=== PATIENT | female | born 1960 ===

== ENCOUNTER 2018-08-21 08:31 | Emergency (ER) | payer BC ==
[2018-08-21] MEDS ORDERED: PEPCID IV ONE (09:51)
[2018-08-21] MEDS ORDERED: BENTYL IM ONE (09:51)
[2018-08-21] MEDS ORDERED: NACL 0.9% 1000 ML 1,000 ML IV ONE (09:51)
[2018-08-21] MEDS ORDERED: ZOFRAN IV ONE (09:51)
[2018-08-21] MEDS ORDERED: TORADOL IV ONE (10:09)
[2018-08-21 10:12] LABS: Basophils # (Auto) 0.1 K/mm3 (0.0-0.1); Basophils % (Auto) 0.8 % (0.0-1.8); Eosinophils # (Auto) 0.1 K/mm3 (0.0-0.4); Eosinophils % (Auto) 0.7 % (0.0-4.3); Hemoglobin 11.3 gm/dl (10.1-14.3); Lymphocytes # (Auto) 1.5 K/mm3 (1.2-5.4); Lymphocytes % (Auto) 10.8 % (13.4-35.0); Mean Corpuscular HGB Conc 33 % (30-34); Mean Corpuscular Volume 90 fl (79-97); Monocytes # (Auto) 0.6 K/mm3 (0.0-0.8); Monocytes % (Auto) 4.4 % (0.0-7.3); Platelet Count 430 K/mm3 (140-440); Red Blood Count 3.79 M/mm3 (3.65-5.03); Red Cell Distribution Width 15.9 % (13.2-15.2)
[2018-08-21 10:28] LABS: Alanine Aminotransferase 32 units/L (7-56); Albumin 3.1 g/dL (3.9-5); BUN/Creatinine Ratio 23; Blood Urea Nitrogen 9 mg/dL (7-17); Calcium 9.4 mg/dL (8.4-10.2); Hemolysis Index 18
--- NOTE | 2018-08-21 10:59 | Ultrasound Report ---
ULTRASOUND ABDOMEN LIMITED INDICATION: Epigastric pain. COMPARISON: 08/15/2018. FINDINGS: Right upper quadrant ultrasound again suggests unremarkable liver. No gallstones or pericholecystic fluid. Gallbladder wall thickness is 2.5 mm. Negative sonographic Mclean's sign. Common bile duct is 4.5 mm. Imaged pancreas, nonaneurysmal abdominal aorta, IVC and right kidney appear within normal limits. CONCLUSION: No acute right upper quadrant sonographic abnormality or significant interval change, as described. Thank you for the opportunity to participate in this patient's care.
[2018-08-21 11:44] LABS: Bacteria,Urine 3+ /HPF (Negative); Mucus,Urine FEW /HPF
[2018-08-21 11:47] LABS: Bilirubin,Urine Negative (Negative); Blood,Urine Small (Negative); Color,Urine Yellow (Yellow); Protein,Urine <15 mg/dL mg/dL (Negative); Urobilinogen,Urine < 2.0 mg/dL (<2.0)
[2018-08-21] MEDS ORDERED: PROTONIX IV ONE (12:35)
[2018-08-21] MEDS ORDERED: MORPHINE IV ONE (12:35)
--- NOTE | 2018-08-21 12:41 | Emergency Department Report ---
ED Abdominal Pain HPI - General Chief Complaint: Abdominal Pain Stated Complaint: ABD XRAY ABNORMAL Time Seen by Provider: 08/21/18 09:46 Source: patient Mode of arrival: Ambulatory Limitations: No Limitations - History of Present Illness Initial Comments: Patient is a 57-year-old female who is presenting with abdominal pain. Pain is been present for approximately week and she has seen GI diagnosed with ulcers. Patient states the medication she's been given is not helping. She has some nausea vomiting yesterday without diarrhea. Patient is complaining of epigastric pain is a 10/02/2009 in severity. Patient also states of some chronic low back pain as well. Patient denies any fevers chills cough "congestion at this time. -: year(s) Severity scale (0 -10): 8 - Related Data Previous Rx's Medication Instructions Recorded Last Taken Type Ibuprofen [Motrin] 800 mg PO Q8HR PRN #30 tablet 08/15/18 Unknown Rx Ondansetron [Zofran Odt] 4 mg PO Q8HR PRN #15 tab.rapdis 08/15/18 Unknown Rx cephALEXin [Keflex] 500 mg PO Q6HR 7 Days cap 08/15/18 Unknown Rx traMADol [Ultram 50 MG tab] 50 mg PO Q6HR PRN #20 tablet 08/15/18 Unknown Rx Famotidine [Pepcid] 40 mg PO QHS #10 tablet 08/21/18 Unknown Rx Pantoprazole [Protonix] 40 mg PO QDAY #30 tablet 08/21/18 Unknown Rx traMADol [Ultram] 50 mg PO Q6HR PRN #12 tablet 08/21/18 Unknown Rx Allergies Allergy/AdvReac Type Severity Reaction Status Date / Time No Known Allergies Allergy Verified 08/15/18 10:38 ED Review of Systems ROS: Stated complaint: ABD XRAY ABNORMAL Other details as noted in HPI Comment: All other systems reviewed and negative ED Past Medical Hx - Past Medical History Hx Diabetes: Yes - Surgical History Additional Surgical History: fibroid surgery - Social History Smoking Status: Never Smoker Substance Use Type: None - Medications Home Medications: Home Medications Medication Instructions Recorded Confirmed Last Taken Type Ibuprofen [Motrin] 800 mg PO Q8HR PRN #30 tablet 08/15/18 Unknown Rx Ondansetron [Zofran Odt] 4 mg PO Q8HR PRN #15 tab.rapdis 08/15/18 Unknown Rx cephALEXin [Keflex] 500 mg PO Q6HR 7 Days cap 08/15/18 Unknown Rx traMADol [Ultram 50 MG tab] 50 mg PO Q6HR PRN #20 tablet 08/15/18 Unknown Rx Famotidine [Pepcid] 40 mg PO QHS #10 tablet 08/21/18 Unknown Rx Pantoprazole [Protonix] 40 mg PO QDAY #30 tablet 08/21/18 Unknown Rx traMADol [Ultram] 50 mg PO Q6HR PRN #12 tablet 08/21/18 Unknown Rx ED Physical Exam - General Limitations: Language Barrier (freelance interpreter/translator was used during the discharge planning) General appearance: alert, in no apparent distress - Head Head exam: Present: atraumatic, normocephalic - Eye Eye exam: Present: normal appearance - ENT ENT exam: Present: mucous membranes moist - Neck Neck exam: Present: normal inspection - Respiratory Respiratory exam: Present: normal lung sounds bilaterally. Absent: respiratory distress, wheezes, rales - Cardiovascular Cardiovascular Exam: Present: regular rate, normal rhythm, normal heart sounds. Absent: systolic murmur, diastolic murmur, rubs, gallop - GI/Abdominal GI/Abdominal exam: Present: soft, tenderness (epigastric), normal bowel sounds. Absent: distended, guarding, rebound, rigid - Extremities Exam Extremities exam: Present: normal inspection - Back Exam Back exam: Present: normal inspection - Neurological Exam Neurological exam: Present: alert, oriented X3 - Psychiatric Psychiatric exam: Present: normal affect, normal mood - Skin Skin exam: Present: warm, dry, intact, normal color. Absent: rash ED Course Vital Signs 08/21/18 08:55 Temperature 98.6 F Pulse Rate 82 Respiratory 20 Rate Blood Pressure 137/74 O2 Sat by Pulse 94 Oximetry ED Medical Decision Making - Lab Data Result diagrams: 08/21/18 09:59 08/21/18 09:59 Lab Results 08/21/18 08/21/18 08/21/18 Range/Units 09:59 09:59 11:29 WBC 13.8 H (4.5-11.0) K/mm3 RBC 3.79 (3.65-5.03) M/mm3 Hgb 11.3 (10.1-14.3) gm/dl Hct 34.0 (30.3-42.9) % MCV 90 (79-97) fl MCH 30 (28-32) pg MCHC 33 (30-34) % RDW 15.9 H (13.2-15.2) % Plt Count 430 (140-440) K/mm3 Lymph % (Auto) 10.8 L (13.4-35.0) % Wilkinson % (Auto) 4.4 (0.0-7.3) % Eos % (Auto) 0.7 (0.0-4.3) % Baso % (Auto) 0.8 (0.0-1.8) % Lymph # 1.5 (1.2-5.4) K/mm3 Wilkinson # 0.6 (0.0-0.8) K/mm3 Eos # 0.1 (0.0-0.4) K/mm3 Baso # 0.1 (0.0-0.1) K/mm3 Seg Neutrophils % 83.3 H (40.0-70.0) % Seg Neutrophils # 11.5 H (1.8-7.7) K/mm3 Sodium 134 L (137-145) mmol/L Potassium 3.9 (3.6-5.0) mmol/L Chloride 98.9 (98-107) mmol/L Carbon Dioxide 25 (22-30) mmol/L Anion Gap 14 mmol/L BUN 9 (7-17) mg/dL Creatinine 0.4 L (0.7-1.2) mg/dL Estimated GFR > 60 ml/min BUN/Creatinine Ratio 23 % Glucose 113 H (65-100) mg/dL Calcium 9.4 (8.4-10.2) mg/dL Total Bilirubin 0.30 (0.1-1.2) mg/dL AST 26 (5-40) units/L ALT 32 (7-56) units/L Alkaline Phosphatase 338 H (35-129) units/L Total Protein 7.5 (6.3-8.2) g/dL Albumin 3.1 L (3.9-5) g/dL Albumin/Globulin Ratio 0.7 % Lipase 15 (13-60) units/L Urine Color Yellow (Yellow) Urine Turbidity Clear (Clear) Urine pH 5.0 (5.0-7.0) Ur Specific Bloomery 1.015 (1.003-1.030) Urine Protein <15 mg/dl (Negative) mg/dL Urine Glucose (UA) Negative (Negative) mg/dL Urine Ketones Negative (Negative) mg/dL Urine Blood Small A (Negative) Urine Nitrite Negative (Negative) Ur Reducing Substances Not Reportable Urine Bilirubin Negative (Negative) Urine Ictotest Not Reportable Urine Urobilinogen < 2.0 (<2.0) mg/dL Ur Leukocyte Esterase Negative (Negative) Urine WBC (Auto) 6.0 (0.0-6.0) /HPF Urine RBC (Auto) 17.0 (0.0-6.0) /HPF U Epithel Cells (Auto) 4.0 (0-13.0) /HPF Urine Bacteria (Auto) 3+ (Negative) /HPF Urine Mucus Few /HPF - Radiology Data [facility] [address] [place] [address] Ultrasound Report Signed Patient: PHYLLIS POLLARD MR#: [id number] : 1960 Acct:[id number] Age/Sex: 57 / F ADM Date: 08/21/18 Loc: ED Attending Dr: Ordering Physician: LEONIE MAI MD Date of Service: 08/21/18 Procedure(s): US abdomen limited Accession Number(s): [id number] cc: LEONIE MIA MD ULTRASOUND ABDOMEN LIMITED INDICATION: Epigastric pain. COMPARISON: 08/15/2018. FINDINGS: Right upper quadrant ultrasound again suggests unremarkable liver. No gallstones or pericholecystic fluid. Gallbladder wall thickness is 2.5 mm. Negative sonographic Mclean's sign. Common bile duct is 4.5 mm. Imaged pancreas, nonaneurysmal abdominal aorta, IVC and right kidney appear within normal limits. CONCLUSION: No acute right upper quadrant sonographic abnormality or significant interval change, as described. Thank you for the opportunity to participate in this patient's care. Transcribed By: RS Dictated By: SHYANN COLEMAN MD Electronically Authenticated By: SHYANN COLEMAN MD Signed Date/Time: 08/21/18 105 DD/ 105 TD/TT: 08/21/18 105 - Medical Decision Making During the discharge planning had a conversation with the patient regarding the medications that she's been taking that she states are not helping. In looking through the patient's medications she is taking 8, milligram Motrin states she also has been taking aspirin. These medications are contraindicated in GERD and peptic ulcer disease. Will be taking the patient off of these medications patient be started on Protonix and Pepcid at home Critical care attestation.: If time is entered above; I have spent that time in minutes in the direct care of this critically ill patient, excluding procedure time. ED Disposition Clinical Impression: PUD (peptic ulcer disease) Disposition: DC- TO HOME OR SELFCARE Is pt being admited?: No Does the pt Need Aspirin: No Condition: Stable Instructions: Peptic Ulcer (ED), Diet for Ulcers and Gastritis (ED) Referrals: [facility] [Provider Group] - 3-5 Days Time of Disposition: 12:41 Print Language: FRISIAN
[2018-08-21 12:58] VITALS: BP 131/63
== END 2018-08-21 12:57 | disposition home or self-care (01) ==
LOC: ED 08:31
DX: K27.9 Peptic ulcer, site unspecified, unspecified as acute or chronic, without hemorrhage or perforation (principal); G89.29 Other chronic pain; M54.5 Low back pain; E11.9 Type 2 diabetes mellitus without complications; Z87.42 Personal history of other diseases of the female genital tract
CPT/HCPCS: 36415; 76705; 80053; 81001; 83690; 85025; 96361; 96372; 96374; 96375; 99284; C9113; J0500; J1885; J2270; J2405; J7030

== ENCOUNTER 2019-02-06 12:26 | Emergency (ER) | payer BC ==
--- NOTE | 2019-02-06 12:40 | Event Note ---
ED Screening Note Date of service: 02/06/19 Time: 12:35 ED Screening Note: This is a 58 y.o. F. that presents to the ER with body aches and fever for 2 days. Patient taking prescribed pain medication for RA and OA. Patient states she is taking augmentin prescribed by PCP for UTI. + N/V and abdominal pain This initial assessment/diagnostic orders/clinical plan/treatment(s) is/are subject to change based on patients health status, clinical progression and re- assessment by fellow clinical providers in the ED. Further treatment and workup at subsequent clinical providers discretion. Patient/guardian urged not to elope from the ED as their condition may be serious if not clinically assessed and managed. Initial orders include: Labs
[2019-02-06] MEDS ORDERED: ZOFRAN IV ONE (13:04)
[2019-02-06] MEDS ORDERED: MORPHINE IV ONE (13:04)
[2019-02-06] MEDS ORDERED: NACL 0.9% 1000 ML 1,000 ML IV ONE (13:14)
[2019-02-06] MEDS ORDERED: NACL 0.9% 1000 ML 1,000 ML ONE (13:16)
--- NOTE | 2019-02-06 13:17 | Emergency Department Report ---
ED Abdominal Pain HPI - General Chief Complaint: Pain General Stated Complaint: PAIN ALL OVER Time Seen by Provider: 02/06/19 12:35 Source: patient Mode of arrival: Ambulatory Limitations: No Limitations - History of Present Illness Initial Comments: Mrs. Philippe is a 58 with hx of PUD, DM, UTI, RA, OA who presents with body aches and fever for 2 days. She has diffuse abdominal pain. Generalized malaise. Currently taking augmentin for UTI prescribed by PCP. MD Complaint: abdominal pain -: Gradual, days(s) (2) Location: diffuse Severity: moderate Severity scale (0 -10): 6 Quality: aching Consistency: constant Improves With: nothing Worsens With: nothing Context: recent antibiotic use Associated Symptoms: nausea - Related Data Previous Rx's Medication Instructions Recorded Last Taken Type Ibuprofen [Motrin] 800 mg PO Q8HR PRN #30 tablet 08/15/18 Unknown Rx Ondansetron [Zofran Odt] 4 mg PO Q8HR PRN #15 tab.rapdis 08/15/18 Unknown Rx cephALEXin [Keflex] 500 mg PO Q6HR 7 Days cap 08/15/18 Unknown Rx traMADol [Ultram 50 MG tab] 50 mg PO Q6HR PRN #20 tablet 08/15/18 Unknown Rx Famotidine [Pepcid] 40 mg PO QHS #10 tablet 08/21/18 Unknown Rx Pantoprazole [Protonix] 40 mg PO QDAY #30 tablet 08/21/18 Unknown Rx traMADol [Ultram] 50 mg PO Q6HR PRN #12 tablet 08/21/18 Unknown Rx Oseltamivir [Tamiflu] 75 mg PO BID 5 Days #10 cap 02/06/19 Unknown Rx Allergies Allergy/AdvReac Type Severity Reaction Status Date / Time No Known Allergies Allergy Verified 08/15/18 10:38 ED Review of Systems ROS: Stated complaint: PAIN ALL OVER Other details as noted in HPI Comment: All other systems reviewed and negative Constitutional: chills, fever, malaise Gastrointestinal: abdominal pain, nausea, vomiting ED Past Medical Hx - Past Medical History Previous Medical History?: Yes Hx Diabetes: Yes - Surgical History Past Surgical History?: Yes Additional Surgical History: fibroid surgery - Social History Smoking Status: Never Smoker - Medications Home Medications: Home Medications Medication Instructions Recorded Confirmed Last Taken Type Ibuprofen [Motrin] 800 mg PO Q8HR PRN #30 tablet 08/15/18 Unknown Rx Ondansetron [Zofran Odt] 4 mg PO Q8HR PRN #15 tab.rapdis 08/15/18 Unknown Rx cephALEXin [Keflex] 500 mg PO Q6HR 7 Days cap 08/15/18 Unknown Rx traMADol [Ultram 50 MG tab] 50 mg PO Q6HR PRN #20 tablet 08/15/18 Unknown Rx Famotidine [Pepcid] 40 mg PO QHS #10 tablet 08/21/18 Unknown Rx Pantoprazole [Protonix] 40 mg PO QDAY #30 tablet 08/21/18 Unknown Rx traMADol [Ultram] 50 mg PO Q6HR PRN #12 tablet 08/21/18 Unknown Rx Oseltamivir [Tamiflu] 75 mg PO BID 5 Days #10 cap 02/06/19 Unknown Rx ED Physical Exam - General Limitations: No Limitations General appearance: alert, in no apparent distress - Head Head exam: Present: atraumatic, normocephalic - Eye Eye exam: Present: normal appearance - ENT ENT exam: Present: mucous membranes moist - Neck Neck exam: Present: normal inspection, full ROM - Respiratory Respiratory exam: Present: normal lung sounds bilaterally. Absent: respiratory distress, wheezes, rales, rhonchi - Cardiovascular Cardiovascular Exam: Present: regular rate, normal rhythm, normal heart sounds. Absent: systolic murmur, diastolic murmur, rubs, gallop - GI/Abdominal GI/Abdominal exam: Present: soft, normal bowel sounds. Absent: distended, tenderness, guarding, rebound - Extremities Exam Extremities exam: Present: normal inspection - Back Exam Back exam: Present: normal inspection - Neurological Exam Neurological exam: Present: alert, oriented X3 - Psychiatric Psychiatric exam: Present: normal affect, normal mood - Skin Skin exam: Present: warm, dry, intact, normal color. Absent: rash ED Course Vital Signs 02/06/19 12:28 Temperature 98.1 F Pulse Rate 95 H Respiratory 18 Rate Blood Pressure 101/70 [Right] O2 Sat by Pulse 95 Oximetry ED Medical Decision Making - Lab Data Result diagrams: 02/06/19 13:11 02/06/19 13:11 - Radiology Data Radiology results: report reviewed interpreted by me: CT abdomen and pelvis: No acute process 8 mm lung nodule Chest x-ray: No acute findings - Medical Decision Making Fever body aches without intra-abdominal infection, pneumonia, UTI. Diagnosis influenza prescribed Tamiflu I have informed the patient that she has a lung nodule. She understands that her primary physician needs to be updated with this information. Critical care attestation.: If time is entered above; I have spent that time in minutes in the direct care of this critically ill patient, excluding procedure time. ED Disposition Clinical Impression: Influenza, Incidental lung nodule Disposition: TO HOME OR SELFCARE Is pt being admited?: No Does the pt Need Aspirin: No Condition: Stable Instructions: Influenza (ED) Additional Instructions: Tienes ndulo pulmonar. Fue visto en CT. Necesitar otra radiografa de trax en 3 meses. Por favor, informe a ruiz mdico. Prescriptions: Oseltamivir [Tamiflu] 75 mg PO BID 5 Days #10 cap Referrals: PRIMARY CARE, [Primary Care Provider] - 3-5 Days Print Language: BRAZILIAN
[2019-02-06 13:26] LABS: Basophils # (Auto) 0.1 K/mm3 (0.0-0.1); Basophils % (Auto) 0.6 % (0.0-1.8); Eosinophils % (Auto) 0.4 % (0.0-4.3); Hematocrit 38.8 % (30.3-42.9); Hemoglobin 13.1 gm/dl (10.1-14.3); Lymphocytes % (Auto) 18.2 % (13.4-35.0); Mean Corpuscular HGB Conc 34 % (30-34); Mean Corpuscular Volume 91 fl (79-97); Monocytes # (Auto) 0.9 K/mm3 (0.0-0.8); Monocytes % (Auto) 8.6 % (0.0-7.3); Platelet Count 267 K/mm3 (140-440); Red Blood Count 4.26 M/mm3 (3.65-5.03); Red Cell Distribution Width 15.2 % (13.2-15.2)
[2019-02-06 13:51] LABS: Alanine Aminotransferase 28 units/L (7-56); Albumin 3.9 g/dL (3.9-5); BUN/Creatinine Ratio 38; Blood Urea Nitrogen 15 mg/dL (7-17); Calcium 8.9 mg/dL (8.4-10.2); Hemolysis Index 14
[2019-02-06 13:53] LABS: Bilirubin,Urine NEG (Negative); Blood,Urine NEG (Negative); Color,Urine Yellow (Yellow); Mucus,Urine 1+ /HPF; Protein,Urine <15 mg/dL mg/dL (Negative); Urobilinogen,Urine < 2.0 mg/dL (<2.0)
--- NOTE | 2019-02-06 14:31 | Cat Scan Report ---
CT ABDOMEN AND PELVIS WITHOUT IV CONTRAST INDICATION: hx of UTI diffuse abdominal pain. COMPARISON: No prior CTs. TECHNIQUE: All CT scans at this facility use dose modulation, automated exposure control, iterative reconstructi on or weight based dosing, when appropriate, to reduce radiation dose to as low as reasonably achieva ble. FINDINGS: Lung Bases: Within the right lower lobe there is a 7-8 mm noncalcified nodule series 2 image 10. Atel ectatic changes are noted in both dependent lung bases. Skeletal System: No acute abnormality. ABDOMEN: Liver: No significant abnormality. Gallbladder: No significant abnormality. Bile Ducts: No significant abnormality. Pancreas: No significant abnormality. Spleen: No significant abnormality. Adrenals: No significant abnormality. Right Kidney: No significant abnormality. Left Kidney: No significant abnormality. Upper GI tract: No significant abnormality. Lymph Nodes: No significant adenopathy. Aorta: No significant abnormality. Additional Findings: No significant abnormality. PELVIS: Colon: No acute abnormality. Diverticulosis is noted. Urinary Bladder and Distal Ureters: No significant abnormality. Appendix: No significant abnormality. Lymph Nodes: No significant adenopathy. Additional Findings: None. IMPRESSION: 1. Within the limitations of non contrast technique, no acute process in the abdomen or pelvis. 2. 7-8 mm noncalcified nodule right lower lobe. See below for follow-up recommendations. INCIDENTAL PULMONARY NODULE RECOMMENDATIONS Solid Nodule size 6-8 mm -- Single - Low Risk Patient: CT at 6-12 months, then consider CT at 18-24 months - High Risk Patient: CT at 6-12 months, then CT at 18-24 months Note These recommendations do not apply to lung cancer screening, patients with immunosuppression, o r patients with known primary cancer. Note Newly detected indeterminate nodule in persons 35 years of age or older. Persons under the age of 35 should not receive follow-up unless there is a known primary cancer. Low Risk Patient -- minimal or absent history of smoking and of other known risk factors. High Risk Patient -- history of smoking or of other known risk factors. Nodule dimensions are average of long and short axes, rounded to the nearest millimeter. Based on 2017 Fleischner Society Guidelines found in Radiology 2017 284:228-243. https://doi.org/10.1 148/radiol.[email or web address] Signer Name: Melecio Clement MD Signed: 02/06/2019 2:27 PM Workstation Name: [id number]
--- NOTE | 2019-02-06 14:57 | XRay Report ---
CHEST 1 VIEW 02/06/2019 2:31 PM INDICATION / CLINICAL INFORMATION: fever. COMPARISON: 08/15/18 FINDINGS: SUPPORT DEVICES: None. HEART / MEDIASTINUM: No significant abnormality. LUNGS / PLEURA: No significant pulmonary or pleural abnormality. Linear scarring in the left upper lo be is unchanged. No pneumothorax. ADDITIONAL FINDINGS: No significant additional findings. IMPRESSION: 1. No acute findings. No change. Signer Name: Nu Smith MD Signed: 02/06/2019 2:52 PM Workstation Name: [id number]
[2019-02-06 16:12] VITALS: BP 120/72
== END 2019-02-06 16:11 | disposition home or self-care (01) ==
LOC: ED 12:26
DX: J11.1 Influenza due to unidentified influenza virus with other respiratory manifestations (principal); R91.8 Other nonspecific abnormal finding of lung field; E11.9 Type 2 diabetes mellitus without complications
CPT/HCPCS: 36415; 71045; 74176; 80053; 81001; 83690; 85025; 96361; 96374; 96375; 99284; J2270; J2405; J7030

== ENCOUNTER 2019-02-09 04:11 | Emergency (ER) | payer BC ==
[2019-02-09] MEDS ORDERED: MORPHINE IM ONE (07:50)
--- NOTE | 2019-02-09 08:42 | Emergency Department Report ---
ED General Adult HPI - General Chief complaint: Abdominal Pain Stated complaint: BODY PAIN Time Seen by Provider: 02/09/19 07:29 Source: patient, family Mode of arrival: Ambulatory Limitations: No Limitations - History of Present Illness Initial comments: Patient is a 57-year-old female with hx of PUD, DM, UTI, RA, OA who presents to the ED today reporting same symptoms as 3 days ago. She has diffuse abdominal pain. Generalized malaise. Currently taking augmentin for UTI , tramadol and meloxicam for pain prescribed by PCP, Dr. Alvarez, along with the Tamiflu prescribed her 3 days ago. Denies any symptoms and states that she is to have a generalized pain and upper abdominal pain for typical ulcers. Patient states that she's been taking her insulin correctly. She denies fevers/chills/nausea vomiting ,diarrhea. Severity scale (0 -10): 10 - Related Data Previous Rx's Medication Instructions Recorded Last Taken Type Ibuprofen [Motrin] 800 mg PO Q8HR PRN #30 tablet 08/15/18 Unknown Rx Ondansetron [Zofran Odt] 4 mg PO Q8HR PRN #15 tab.rapdis 08/15/18 Unknown Rx cephALEXin [Keflex] 500 mg PO Q6HR 7 Days cap 08/15/18 Unknown Rx traMADol [Ultram 50 MG tab] 50 mg PO Q6HR PRN #20 tablet 08/15/18 Unknown Rx Famotidine [Pepcid] 40 mg PO QHS #10 tablet 08/21/18 Unknown Rx traMADol [Ultram] 50 mg PO Q6HR PRN #12 tablet 08/21/18 Unknown Rx Oseltamivir [Tamiflu] 75 mg PO BID 5 Days #10 cap 02/06/19 Unknown Rx traMADol [Ultram 50 MG tab] 50 mg PO Q6HR PRN #10 tablet 02/06/19 Unknown Rx Pantoprazole [Protonix TAB] 40 mg PO QDAY #30 tablet 02/09/19 Unknown Rx Allergies Allergy/AdvReac Type Severity Reaction Status Date / Time No Known Allergies Allergy Verified 08/15/18 10:38 ED Review of Systems ROS: Stated complaint: BODY PAIN Other details as noted in HPI Comment: All other systems reviewed and negative ED Past Medical Hx - Past Medical History Previous Medical History?: Yes Hx Diabetes: Yes - Surgical History Past Surgical History?: No Additional Surgical History: fibroid surgery - Social History Smoking Status: Never Smoker Substance Use Type: None - Medications Home Medications: Home Medications Medication Instructions Recorded Confirmed Last Taken Type Ibuprofen [Motrin] 800 mg PO Q8HR PRN #30 tablet 08/15/18 Unknown Rx Ondansetron [Zofran Odt] 4 mg PO Q8HR PRN #15 tab.rapdis 08/15/18 Unknown Rx cephALEXin [Keflex] 500 mg PO Q6HR 7 Days cap 08/15/18 Unknown Rx traMADol [Ultram 50 MG tab] 50 mg PO Q6HR PRN #20 tablet 08/15/18 Unknown Rx Famotidine [Pepcid] 40 mg PO QHS #10 tablet 08/21/18 Unknown Rx traMADol [Ultram] 50 mg PO Q6HR PRN #12 tablet 08/21/18 Unknown Rx Oseltamivir [Tamiflu] 75 mg PO BID 5 Days #10 cap 02/06/19 Unknown Rx traMADol [Ultram 50 MG tab] 50 mg PO Q6HR PRN #10 tablet 02/06/19 Unknown Rx Pantoprazole [Protonix TAB] 40 mg PO QDAY #30 tablet 02/09/19 Unknown Rx ED Physical Exam - General Limitations: No Limitations General appearance: alert, in no apparent distress - Head Head exam: Present: atraumatic, normocephalic - Eye Eye exam: Present: normal appearance - ENT ENT exam: Present: mucous membranes moist - Neck Neck exam: Present: normal inspection - Respiratory Respiratory exam: Present: normal lung sounds bilaterally. Absent: respiratory distress - Cardiovascular Cardiovascular Exam: Present: regular rate, normal rhythm. Absent: systolic murmur, diastolic murmur, rubs, gallop - GI/Abdominal GI/Abdominal exam: Present: soft, normal bowel sounds. Absent: distended, tenderness, guarding - Extremities Exam Extremities exam: Present: normal inspection - Back Exam Back exam: Present: normal inspection - Neurological Exam Neurological exam: Present: alert, oriented X3 - Psychiatric Psychiatric exam: Present: normal affect, normal mood - Skin Skin exam: Present: warm, dry, intact, normal color. Absent: rash ED Course Vital Signs 02/09/19 02/09/19 04:25 08:17 Temperature 99.0 F 98.3 F Pulse Rate 114 H 87 Respiratory 20 17 Rate Blood Pressure 117/67 Blood Pressure 132/69 [Right] O2 Sat by Pulse 96 93 Oximetry ED Medical Decision Making - Radiology Data Radiology results: report reviewed - Medical Decision Making 58-year-old female was recently diagnosed with a viral syndrome. Patient is currently taking medications for UTI and pain medication prescribed by her primary care doctor. Discussed with patient she will have malaise for the next couple days to week what she is fighting syndrome. Discussed the patient continued to continue medication as she has been prescribed. Patient received 3 mg of morphine for pain in the ED today. Patient had a normal CT scan of the abdomen 2 days ago. Reviewed report I discussed with the patient hydrate throughout the day. I also discussed with her to follow up with her primary care physician Dr. Alvarez. I encourage patient to continue taking her medications as prescribed. Vital signs are stable and normal patient respiratory distress. Critical care attestation.: If time is entered above; I have spent that time in minutes in the direct care of this critically ill patient, excluding procedure time. ED Disposition Clinical Impression: Viral syndrome, Myalgia, Peptic ulcer disease Disposition: TO HOME OR SELFCARE Is pt being admited?: No Does the pt Need Aspirin: No Condition: Stable Instructions: Abdominal Pain (ED) Additional Instructions: Make sure to follow up with the primary care physician as discussed. Take all your medications as you've been prescribed. If you have any worsening symptoms or develop new symptoms please return to ED immediately. Prescriptions: Pantoprazole [Protonix TAB] 40 mg PO QDAY #30 tablet Referrals: DEJA CLEMENS MD [Primary Care Provider] - 3-5 Days MADELYN ALVAREZ MD [Referring] - 3-5 Days [facility] [Provider Group] - 3-5 Days Forms: Accompanied Note, Work/School Release Form(ED) Time of Disposition: 08:51
[2019-02-09 10:03] VITALS: BP 120/71
== END 2019-02-09 09:26 | disposition home or self-care (01) ==
LOC: ED 04:11
DX: K27.9 Peptic ulcer, site unspecified, unspecified as acute or chronic, without hemorrhage or perforation (principal); B34.9 Viral infection, unspecified; E11.9 Type 2 diabetes mellitus without complications; Z98.890 Other specified postprocedural states; Z79.899 Other long term (current) drug therapy
CPT/HCPCS: 96372; 99282; J2270

== ENCOUNTER 2019-12-11 09:44 | Emergency (ER) | payer BC ==
[2019-12-11 09:54] VITALS: BP 120/72
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
== END 2019-12-11 13:20 | disposition home or self-care (01) ==
LOC: ED 09:44
DX: R07.89 Other chest pain (principal); E11.9 Type 2 diabetes mellitus without complications; Z98.890 Other specified postprocedural states; Z79.1 Long term (current) use of non-steroidal anti-inflammatories (NSAID); Z79.899 Other long term (current) drug therapy; V49.69XA Unspecified car occupant injured in collision with other motor vehicles in traffic accident, initial encounter; Y93.89 Activity, other specified; Y92.481 Parking lot as the place of occurrence of the external cause; Y99.8 Other external cause status
CPT/HCPCS: 71046; 93005

== ENCOUNTER 2020-09-03 11:41 | Emergency (ER) | payer BC ==
[2020-09-03 11:53] VITALS: BP 153/84
--- NOTE | 2020-09-03 12:35 | XRay Report ---
CHEST 2 VIEWS INDICATION / CLINICAL INFORMATION: cough. COMPARISON: 12/11/2019 FINDINGS: SUPPORT DEVICES: None. HEART / MEDIASTINUM: No significant abnormality. LUNGS / PLEURA: Small nodular densities in the medial aspect of the right lower lung may correspond t o a tortuous pulmonary artery and appears similar when compared to 12/11/2019. No convincing evidence of acute pulmonary parenchymal or pleural abnormality. No pneumothorax. ADDITIONAL FINDINGS: No significant additional findings. IMPRESSION: 1. No acute findings. Signer Name: Bipin Anand MD Signed: 09/03/2020 12:31 PM Workstation Name: [id number]
--- NOTE | 2020-09-03 12:54 | Emergency Department Report ---
- General Chief Complaint: Pain General Stated Complaint: BODY PAIN/HEADACHE Time Seen by Provider: 09/03/20 11:48 Source: patient, family Mode of arrival: Ambulatory Limitations: Language Barrier - History of Present Illness Initial Comments: This is a 59-year-old female nontoxic, well nourished in appearance, no acute signs of distress presents to the ED with c/o of productive cough, chills, frontal sinus headache, body aches, rhinorrhea, nasal congestion x several days. Patient describes productive cough as yellow mucus production. Patient denies any sick contact. Patient denies any recent travels, long car, recent hospital stays. Patient denies any calf pain or calf tenderness. Patient denies any chest pain, short of breath, fever, nausea, vomiting, hemoptysis, numbness, tingling, headache or stiff neck. Patient denies any allergies or significant past medical history. conference interpreter present during interview, physical exam and discharge instructions. MD Complaint: cough, rhinorrhea, nasal congestion, sinus pain -: days(s) Severity: mild Severity scale (0 -10): 8 Quality: aching Consistency: constant Improves With: nothing Worsens With: nothing Associated Symptoms: chills, rhinorrhea, nasal congestion, cough. denies: fever, myalgias, diaphoresis, headache, sore throat, stiff neck, chest pain, shortness of breath, abdominal pain, nausea, vomiting, diarrhea, dysuria, rash, confusion, right sweats, weight loss, epistaxis, hoarseness, ear pain Treatments Prior to Arrival: none - Related Data Previous Rx's Medication Instructions Recorded Last Taken Type Ondansetron [Zofran Odt] 4 mg PO Q8HR PRN #15 tab.rapdis 08/15/18 Unknown Rx cephALEXin [Keflex] 500 mg PO Q6HR 7 Days cap 08/15/18 Unknown Rx Famotidine [Pepcid] 40 mg PO QHS #10 tablet 08/21/18 Unknown Rx traMADoL [Ultram] 50 mg PO Q6HR PRN #12 tablet 08/21/18 Unknown Rx Oseltamivir [Tamiflu] 75 mg PO BID 5 Days #10 cap 02/06/19 Unknown Rx traMADoL [Ultram 50 MG tab] 50 mg PO Q6HR PRN #10 tablet 02/06/19 Unknown Rx Pantoprazole [Protonix TAB] 40 mg PO QDAY #30 tablet 02/09/19 Unknown Rx Ibuprofen [Motrin 800 MG tab] 800 mg PO Q8HR PRN #30 tablet 12/11/19 Unknown Rx traMADoL [Ultram 50 MG tab] 50 mg PO Q6HR PRN #20 tablet 12/11/19 Unknown Rx Azithromycin [Zithromax Z-WALDO] 250 mg PO DAILY #6 tablet 09/03/20 Unknown Rx Allergies Allergy/AdvReac Type Severity Reaction Status Date / Time No Known Allergies Allergy Verified 08/15/18 10:38 ED Review of Systems ROS: Stated complaint: BODY PAIN/HEADACHE Other details as noted in HPI Comment: All other systems reviewed and negative Constitutional: chills. denies: fever Eyes: denies: eye pain, eye discharge, vision change ENT: congestion. denies: ear pain, throat pain Respiratory: cough. denies: shortness of breath, wheezing Cardiovascular: denies: chest pain, palpitations Endocrine: no symptoms reported Gastrointestinal: denies: abdominal pain, nausea, diarrhea Genitourinary: denies: urgency, dysuria, discharge Musculoskeletal: denies: back pain, joint swelling, arthralgia Skin: denies: rash, lesions Neurological: denies: headache, weakness, paresthesias Psychiatric: denies: anxiety, depression Hematological/Lymphatic: denies: easy bleeding, easy bruising ED Past Medical Hx - Past Medical History Previous Medical History?: Yes Hx Diabetes: Yes - Surgical History Past Surgical History?: Yes Additional Surgical History: fibroid surgery - Social History Smoking Status: Never Smoker Substance Use Type: None - Medications Home Medications: Home Medications Medication Instructions Recorded Confirmed Last Taken Type Ondansetron [Zofran Odt] 4 mg PO Q8HR PRN #15 tab.rapdis 08/15/18 Unknown Rx cephALEXin [Keflex] 500 mg PO Q6HR 7 Days cap 08/15/18 Unknown Rx Famotidine [Pepcid] 40 mg PO QHS #10 tablet 08/21/18 Unknown Rx traMADoL [Ultram] 50 mg PO Q6HR PRN #12 tablet 08/21/18 Unknown Rx Oseltamivir [Tamiflu] 75 mg PO BID 5 Days #10 cap 02/06/19 Unknown Rx traMADoL [Ultram 50 MG tab] 50 mg PO Q6HR PRN #10 tablet 02/06/19 Unknown Rx Pantoprazole [Protonix TAB] 40 mg PO QDAY #30 tablet 02/09/19 Unknown Rx Ibuprofen [Motrin 800 MG tab] 800 mg PO Q8HR PRN #30 tablet 12/11/19 Unknown Rx traMADoL [Ultram 50 MG tab] 50 mg PO Q6HR PRN #20 tablet 12/11/19 Unknown Rx Azithromycin [Zithromax Z-WALDO] 250 mg PO DAILY #6 tablet 09/03/20 Unknown Rx ED Physical Exam - General Limitations: Language Barrier General appearance: alert, in no apparent distress - Head Head exam: Present: atraumatic, normocephalic - Eye Eye exam: Present: normal appearance, PERRL, EOMI Pupils: Present: normal accommodation - ENT ENT exam: Present: normal exam, normal orophraynx - Neck Neck exam: Present: normal inspection, full ROM. Absent: tenderness, meningismus, lymphadenopathy - Respiratory Respiratory exam: Present: normal lung sounds bilaterally. Absent: respiratory distress, wheezes, rales, rhonchi, stridor, chest wall tenderness, accessory muscle use, decreased breath sounds, prolonged expiratory - Cardiovascular Cardiovascular Exam: Present: regular rate, normal rhythm, normal heart sounds. Absent: bradycardia, tachycardia, irregular rhythm, systolic murmur, diastolic murmur, rubs, gallop - GI/Abdominal GI/Abdominal exam: Present: soft, normal bowel sounds. Absent: distended, tenderness, guarding, rebound, rigid, diminished bowel sounds - Extremities Exam Extremities exam: Present: normal inspection, full ROM - Back Exam Back exam: Present: normal inspection, full ROM - Neurological Exam Neurological exam: Present: alert, oriented X3, normal gait - Expanded Neurological Exam Expanded Patient oriented to: Present: person, place, time Cranial nerves: EOM's Intact: Normal, Facial Sensation: Normal Cerebellar function: Finger to Nose: Normal Upper motor neuron: Pronator Drift: Normal, Sensory Extinction: Normal Motor strength exam: RUE: 5, LUE: 5, RLE: 5, LLE: 5 Best Eye Response ([place]): (4) open spontaneously Best Motor Response ([place]): (6) obeys commands Best Verbal Response ([place]): (5) oriented [place] Total: 15 - Psychiatric Psychiatric exam: Present: normal affect, normal mood - Skin Skin exam: Present: warm, dry, intact, normal color. Absent: rash - Other Other exam information: Positive frontal sinus tenderness ED Course Vital Signs 09/03/20 11:45 Temperature 98.5 F Pulse Rate 77 Respiratory 14 Rate Blood Pressure 153/84 O2 Sat by Pulse 97 Oximetry - Reevaluation(s) Reevaluation #1: 09/03/20 12:53 Patient is speaking in full sentences with no signs of distress noted. ED Medical Decision Making - Radiology Data [facility] [address] [place] [address] XRay Report Signed Patient: PHYLLIS POLLARD MR#: [id number] : 1960 Acct:[id number] Age/Sex: 59 / F ADM Date: 09/03/20 Loc: ED Attending Dr: Ordering Physician: YAIMA GARCÍA NP Date of Service: 09/03/20 Procedure(s): XR chest routine 2V Accession Number(s): [id number] cc: YAIMA GARCÍA NP Fluoro Time In Minutes: CHEST 2 VIEWS INDICATION / CLINICAL INFORMATION: cough. COMPARISON: 12/11/2019 FINDINGS: SUPPORT DEVICES: None. HEART / MEDIASTINUM: No significant abnormality. LUNGS / PLEURA: Small nodular densities in the medial aspect of the right lower lung may correspond to a tortuous pulmonary artery and appears similar when compared to 12/11/2019. No convincing evidence of acute pulmonary parenchymal or pleural abnormality. No pneumothorax. ADDITIONAL FINDINGS: No significant additional findings. IMPRESSION: 1. No acute findings. Signer Name: Mehrdad Anand MD Signed: 09/03/2020 12:31 PM Workstation Name: [id number] Transcribed By: Dictated By: MEHRDAD ANAND III Electronically Authenticated By: MEHRDAD ANAND III Signed Date/Time: 09/03/20 1231 DD/ 1228 TD/TT: - Medical Decision Making This is a 59-year-old female that presents with suspected Covid with sinusitis. Patient is stable and was examined by me. Chest x-ray has been obtained and dictated by radiologist with normal exam. Patient is notified of x-ray results with no questions noted. Patient does meet clinical concerns of COVID-19 and patient was instructed and educated on signs and symptoms and to self quarantine and seek medical attention as soon as possible if symptoms worsen and continue. Patient be discharged with Z-Waldo. Patient was instructed to increase hydration, rest and take Tylenol for fever episodes. Vitals stable. Patient is nonfebrile and normal heart rate. Patient was instructed Follow-up with a primary care doctor in 3-5 days or if symptoms worsen and continue return to emergency room as soon as possible. At time time of discharge, the patient does not seem toxic or ill in appearance. No acute signs of distress noted. Patient agrees to discharge treatment plan of care. No further questions noted by the patient.nt. conference interpreter present during interview, physical exam and discharge instructions. Critical care attestation.: If time is entered above; I have spent that time in minutes in the direct care of this critically ill patient, excluding procedure time. ED Disposition Clinical Impression: Suspected COVID-19 virus infection Sinusitis Qualifiers: Sinusitis location: frontal Chronicity: acute Recurrence: non-recurrent Qualified Code(s): J01.10 - Acute frontal sinusitis, unspecified Disposition: TO HOME OR SELFCARE Is pt being admited?: No Does the pt Need Aspirin: No Condition: Stable Instructions: COVID-19 Frequently Asked Questions, COVID-19, Sinusitis, Adult, Fwop-[id number] Additional Instructions: Follow-up with a primary care doctor in 3-5 days or if symptoms worsen and continue return to emergency room as soon as possible. As educated and instructed to you must self quarantine yourself and people that you have been in close contact with similar symptoms for the next 14 days. Please see your nearest health department or primary care doctor that you are referred to for COVID testing. Increased rest, hydration, and take Tylenol as prescribed for fever episode. Prescriptions: Azithromycin [Zithromax Z-WALDO] 250 mg PO DAILY #6 tablet Referrals: SINDY FLORES MD [Primary Care Provider] - 3-5 Days PRIMARY CAREMD [Referring] - 3-5 Days DENIZ DIXON MD [Staff Physician] - 3-5 Days Time of Disposition: 12:55
== END 2020-09-03 13:48 | disposition home or self-care (01) ==
LOC: ED 11:41
DX: J32.9 Chronic sinusitis, unspecified (principal); Z20.822 Contact with and (suspected) exposure to COVID-19; E11.9 Type 2 diabetes mellitus without complications; Z98.890 Other specified postprocedural states; Z79.1 Long term (current) use of non-steroidal anti-inflammatories (NSAID); Z79.2 Long term (current) use of antibiotics; Z79.899 Other long term (current) drug therapy
CPT/HCPCS: 71046